=== PATIENT | male | born 1950 | race Caucasian/White ===

== ENCOUNTER 2021-12-21 08:50 | Outpatient (CLI) | payer MEDICARE | END 2021-12-21 08:51 | disposition home or self-care (01) | LOC: LABBT 08:50 | PROVIDERS: ATTEND Ophthalmology Retina Specialist | DX: H35.371 Puckering of macula, right eye (principal); Z20.822 Contact with and (suspected) exposure to COVID-19 | CPT/HCPCS: U0003; U0005 ==

== ENCOUNTER 2021-12-24 06:05 | Day surgery (SDC) | payer MEDICARE ==
[2021-12-22 13:08] VITALS: BMI 22.9
[2021-12-24] MEDS ORDERED: PROPOFOL 20 ML ONE (06:27)
[2021-12-24] MEDS ORDERED: Midazolam HCl 2 mg/2 ml Vial ONE (06:27)
[2021-12-24] MEDS ORDERED: fentaNYL Citrate/PF 100 MCG/2 ML SYRINGE ONE (06:27)
[2021-12-24] MEDS ORDERED: Phenylephrine 2.5% Ophth Soln 5 ML BOT FS SCH (06:30)
[2021-12-24] MEDS ORDERED: Cyclopentolate 1% Opth Drop 2 ML BOT FS SCH (06:30)
[2021-12-24] MEDS ORDERED: Phenylephrine 2.5% Ophth Soln 5 ML BOT ONE (06:30)
[2021-12-24] MEDS ORDERED: Fluorouracil 100 MG, Enoxaparin Sodium 25 MG, EPINEPHrine 0.3 MG in Ophthalmic Irrigati... IRR SCH (06:30)
[2021-12-24] MEDS ORDERED: Cyclopentolate 1% Opth Drop 2 ML BOT ONE (06:30)
[2021-12-24] MEDS ORDERED: Triamcinolone 40 MG/ML VIAL ONE (07:28)
[2021-12-24] MEDS ORDERED: Bupivacaine 0.75% 10 ML VIAL ONE (07:28)
[2021-12-24] MEDS ORDERED: Maxitrol 0.1% Opth Oint 3.5 GM TUBE ONE (07:28)
[2021-12-24] MEDS ORDERED: CEFAZOLIN 1 GM VIAL ONE (07:28)
[2021-12-24] MEDS ORDERED: Lidocaine 4% PF 5 ML AMP ONE (07:28)
[2021-12-24] MEDS ORDERED: Indocyanine Green 25 MG/10 ML VIAL ONE (07:28)
[2021-12-24] MEDS ORDERED: Lidocaine 1% PF 5 ML VIAL ONE (07:28)
[2021-12-24] MEDS ORDERED: PROPOFOL 200 MG/20 ML VIAL ONE (07:28)
== END 2021-12-24 09:10 | disposition home or self-care (01) ==
LOC: SDC 06:05
PROVIDERS: ATTEND Ophthalmology Retina Specialist
PROC: 08T43ZZ Resection of Right Vitreous, Percutaneous Approach (ICD-10-PCS; principal; 2021-12-24)
PROC: 08NE3ZZ Release Right Retina, Percutaneous Approach (ICD-10-PCS; 2021-12-24)
DX: H43.391 Other vitreous opacities, right eye (principal); H33.10 Unspecified retinoschisis; H35.371 Puckering of macula, right eye; Z79.02 Long term (current) use of antithrombotics/antiplatelets; Z79.82 Long term (current) use of aspirin; Z79.899 Other long term (current) drug therapy; Z95.1 Presence of aortocoronary bypass graft
CPT/HCPCS: 67025; J0690; J2250; J2704; J3301; J3490